=== PATIENT | female | born 1990 | race Caucasian/White ===

== ENCOUNTER 2021-09-03 13:52 | Emergency (ER) | payer OTHER ==
[~2021-09-03] VITALS: Ht 165.1 cm; Wt 49.9 kg
[2021-09-03 16:15] LABS: *BILIRUBIN,URIN NEGATIVE (NEGATIVE); *BLOOD, URINE NEGATIVE (NEGATIVE); *CLARITY,URINE CLEAR (CLEAR); *COLOR,URINE YELLOW (YELLOW); *KETONES,URINE NEGATIVE (NEGATIVE); *UROBILINOGEN,URINE 0.2 E.U./dl (NORMAL); LEUKOCYTE ESTERASE ,URINE NEGATIVE (NEGATIVE); NITRITE, URINE NEGATIVE (NEGATIVE); UGLUCOSE NEGATIVE (NEGATIVE)
[2021-09-03 16:16] LABS: HEMATOCRIT 38.3 % (31.2-41.9); MEAN CORPUSCULAR HEMOGLOBIN 31.9 uug (24.7-32.8); MEAN CORPUSCULAR VOLUME 93.9 fL (75.5-95.3); PLATELET COUNT (AUTO) 260 K/uL (179-408)
[2021-09-03 16:20] LABS: CARBON DIOXIDE 23 mmol/L (21-32); CHLORIDE 103 mmol/L (98-107); CREATININE 0.8 mg/dL (0.6-1.3); GLUCOSE 90 mg/dL (74-106); POTASSIUM 3.4 mmol/L (3.5-5.1); UREA NITROGEN, BLOOD 8 mg/dL (7-18)
[2021-09-03 16:26] LABS: ALANINE AMINOTRANSFERASE 32 U/L (14-59); ALKALINE PHOSPHATASE 89 U/L (50-136); ASPARTATE AMINOTRANSFERASE 21 U/L (15-37); BILIRUBIN,DIRECT < 0.1 mg/dL (0.0-0.2); BILIRUBIN,TOTAL 0.4 mg/dL (0.2-1.0); TOTAL PROTEIN, SERUM 7.7 g/dL (6.4-8.2)
[2021-09-03] MEDS ORDERED: DEXAMETHASONE SOD PHOSPHATE 4 MG INJ ONE (16:29)
[2021-09-03] MEDS ORDERED: ONDANSETRON 4 MG/2 ML VIAL ONE (16:30)
[2021-09-03] MEDS ORDERED: CEFTRIAXONE /D5W 50ML IVPB **ER PYXIS IV ONE (16:30)
[2021-09-03] MEDS ORDERED: KETOROLAC TROMETHAMINE 15 MG INJ ONE (16:30)
[2021-09-03] MEDS: DEXAMETHASONE SOD PHOSPHATE 4 MG INJ IV ONE (16:34)
[2021-09-03] MEDS: IV NORMAL SALINE 1000 ML BAG IV ONE (16:34)
[2021-09-03] MEDS: ONDANSETRON 4 MG/2 ML VIAL IV ONE (16:34)
[2021-09-03] MEDS: KETOROLAC TROMETHAMINE 15 MG INJ IVP ONE (16:35)
[2021-09-03] MEDS: CEFTRIAXONE 1 G in IV DEXTROSE 5% 50 ML IV ONE (16:35)
[2021-09-03] MEDS ORDERED: PRED50TA PO (17:03)
[2021-09-03] MEDS ORDERED: HYDR-3972 PO (17:03)
--- NOTE | 2021-09-03 17:14 | NUR ---
IV removed. Catheter intact and site benign. Pressure and 4x4 gauze applied to site. No bleeding noted.
--- NOTE | 2021-09-03 17:15 | NUR ---
Patient discharged to home in stable condition. Written and verbal after care instructions given. Patient verbalizes understanding of instructions. Stressed follow up or return to ER for worsening s/s.
[2021-09-03 17:17] VITALS: BP 124/78
== END 2021-09-03 17:17 | disposition home or self-care (01) ==
LOC: ER 13:52
DX: B34.9 Viral infection, unspecified (principal); R05.9 Cough, unspecified; Z20.822 Contact with and (suspected) exposure to COVID-19; F17.210 Nicotine dependence, cigarettes, uncomplicated; Z81.1 Family history of alcohol abuse and dependence; R00.0 Tachycardia, unspecified
CPT/HCPCS: 36415; 71045; 80048; 80076; 81003; 83605; 84145; 84484; 84702; 85025; 87040 ×2; 87086; 87400; 87426; 93005; 96365; 96375; 99285; J0696; J1100; J1885; J2405; 70030-TC; A4663; J7030; J7040

== ENCOUNTER 2022-02-06 19:19 | Emergency (ER) | payer OTHER ==
[~2022-02-06] VITALS: Ht 152.4 cm; Wt 52.2 kg
[~2022-02-06 19:19] MED LIST: HYDR-3972 PO; PRED50TA PO
--- NOTE | 2022-02-06 19:52 | NUR ---
Dr. Malone at bedside, MSE in progress.
[2022-02-06] MEDS ORDERED: CLINDAMYCIN HCL 150 MG CAPSULE ONE (20:13)
[2022-02-06] MEDS ORDERED: CLINDAMYCIN HCL 150 MG CAPSULE PO ONE (20:15)
[2022-02-06] MEDS ORDERED: CLIN300C12 PO ×2 (20:20→20:24)
[2022-02-06] MEDS ORDERED: HYDR-4209 PO (20:24)
[2022-02-06] MEDS ORDERED: HYDROCODONE/APAP 5-325MG TABLET ONE (20:28)
[2022-02-06] MEDS ORDERED: HYDROCODONE/APAP 5-325MG TABLET PO ONE (20:30)
--- NOTE | 2022-02-06 20:31 | NUR ---
Patient discharged to home in stable condition. Written and verbal after care instructions given. Patient verbalizes understanding of instructions. Stressed follow up or return to ER for worsening s/s. pt ambulated with steady gait. denies pain. no SOB. no chest pain. AOx4.
[2022-02-06 20:34] VITALS: BP 119/80
== END 2022-02-06 20:35 | disposition home or self-care (01) ==
LOC: ER 19:21
DX: K04.7 Periapical abscess without sinus (principal); R07.0 Pain in throat; Z88.0 Allergy status to penicillin
CPT/HCPCS: A4663

== ENCOUNTER 2023-01-01 20:01 | Emergency (ER) | payer OTHER ==
[~2023-01-01] VITALS: Ht 165.1 cm; Wt 49.9 kg
[~2023-01-01 20:01] MED LIST changes: +CLIN300C12 PO; +HYDR-4209 PO
[2023-01-01 20:08] VITALS: O2SAT 99
--- NOTE | 2023-01-01 20:15 | NUR ---
Dr. Salas at bedside. MSE in progress.
[2023-01-01] MEDS ORDERED: LIDOCAINE 2%-EPI 1:100,000 20 ML VIAL TP ONE (20:30)
[2023-01-01] MEDS ORDERED: LIDOCAINE 2%-EPI 1:100,000 20 ML VIAL ONE (20:31)
[2023-01-01] MEDS ORDERED: HYDR-3980 PO (20:58)
[2023-01-01] MEDS ORDERED: CEPH500C2 PO (20:58)
--- NOTE | 2023-01-01 21:25 | NUR ---
Patient a/o x 4. NAD noted. Ambulatory with a steady gait. All belongings with patient. Patient discharged to home in stable condition. Written and verbal after care instructions given. Patient verbalizes understanding of instructions. Stressed follow up or return to ER for worsening s/s.
== END 2023-01-01 21:26 | disposition home or self-care (01) ==
LOC: ER 20:03
DX: L02.411 Cutaneous abscess of right axilla (principal); F17.210 Nicotine dependence, cigarettes, uncomplicated; Z71.6 Tobacco abuse counseling; Z88.0 Allergy status to penicillin; Z79.2 Long term (current) use of antibiotics; Z79.899 Other long term (current) drug therapy
CPT/HCPCS: A4663

== ENCOUNTER 2023-09-08 19:43 | Emergency (ER) | payer OTHER ==
[~2023-09-08] VITALS: Ht 157.5 cm; Wt 52.2 kg
[~2023-09-08 19:43] MED LIST changes: +CEPH500C2 PO; +HYDR-3980 PO
[2023-09-08] MEDS ORDERED: ASPIRIN 81 MG TAB.CHEW PO ONE (20:15)
[2023-09-08] MEDS ORDERED: NITROGLYCERIN OINT 1 GM PACKET TP ONE ×2 (20:15→20:16)
[2023-09-08] MEDS ORDERED: ASPIRIN 81 MG TAB.CHEW ONE (20:16)
[2023-09-08] MEDS ORDERED: ACETAMINOPHEN ES 500 MG TABLET PO ONE (20:30)
[2023-09-08 20:43] LABS: CALCIUM 9.8 mg/dL (8.5-10.1); CARBON DIOXIDE 26 mmol/L (21-32); CHLORIDE 99 mmol/L (98-107); CREATININE 0.7 mg/dL (0.6-1.3); GLUCOSE 99 mg/dL (74-106); POTASSIUM 3.6 mmol/L (3.5-5.1); SODIUM SERUM 134 mmol/L (136-145); UREA NITROGEN, BLOOD 9 mg/dL (7-18)
[2023-09-08] MEDS ORDERED: GUAIFENESIN/CODEINE 5 ML LIQUID UDC PO ONE (20:45)
[2023-09-08] MEDS ORDERED: ONDANSETRON ODT 4 MG TAB.RAPDIS SL ONE (20:45)
[2023-09-08] MEDS ORDERED: HYDROCODONE/APAP 5-325MG TABLET PO ONE (20:45)
[2023-09-08] MEDS ORDERED: ONDANSETRON ODT 4 MG TAB.RAPDIS ONE (20:45)
[2023-09-08] MEDS ORDERED: GUAIFENESIN/CODEINE 5 ML LIQUID UDC ONE (20:45)
[2023-09-08] MEDS ORDERED: ACETAMINOPHEN ES 500 MG TABLET ONE (20:45)
[2023-09-08] MEDS ORDERED: predniSONE 50 MG TABLET ONE (20:45)
[2023-09-08] MEDS ORDERED: predniSONE 50 MG TABLET PO ONE (20:45)
[2023-09-08] MEDS ORDERED: HYDROCODONE/APAP 5-325MG TABLET ONE (20:46)
[2023-09-08 20:51] LABS: BASOPHILS # (AUTO) 0.1 K/UL (0.0-0.2); BASOPHILS % (AUTO) 0.4 % (0.0-2.0); EOSINOPHILS # (AUTO) 0.2 K/uL (0.0-0.7); HEMOGLOBIN 12.3 g/dL (10.9-14.3); LYMPHOCYTES # (AUTO) 1.2 K/uL (0.8-4.8); LYMPHOCYTES % (AUTO) 7.9 % (20.5-51.5); MEAN CORPUSCULAR HEMOGLOBIN 30.8 uug (24.7-32.8); MEAN CORPUSCULAR HGB CONC 33 g/dL (32.3-35.6); MEAN CORPUSCULAR VOLUME 92.2 fL (75.5-95.3); MONOCYTES # (AUTO) 1.5 K/uL (0.1-1.30); MONOCYTES % (AUTO) 9.7 % (0.0-11.0); NEUTROPHILS # (AUTO) 12.8 K/uL (1.8-8.9); PLATELET COUNT (AUTO) 308 K/uL (179-408); RED BLOOD CELL COUNT(AUTO) 4.01 MIL/uL (3.63-4.92); RED CELL DISTRIBUTION WIDTH 14.1 % (12.3-17.7); WHITE BLOOD COUNT (AUTO) 15.8 K/uL (3.8-11.8)
[2023-09-08 20:52] LABS: DIFFERENTIAL COMMENT 1
[2023-09-08 20:56] LABS: ALANINE AMINOTRANSFERASE 22 U/L (14-59); ALBUMIN 3.7 g/dL (3.4-5.0); ALKALINE PHOSPHATASE 88 U/L (50-136); ASPARTATE AMINOTRANSFERASE 15 U/L (15-37); BILIRUBIN,DIRECT 0.1 mg/dL (0.0-0.2); BILIRUBIN,TOTAL 0.3 mg/dL (0.2-1.0); NT-PRO BNP 38 pg/mL (0-125); TOTAL PROTEIN, SERUM 7.5 g/dL (6.4-8.2)
[2023-09-08] MEDS ORDERED: IV NORMAL SALINE 1000 ML BAG IV ONE ×2 (21:00→21:45)
[2023-09-08] MEDS ORDERED: AZITHROMYCIN 500MG/ D5W 250ML IVPB **ER PYXIS ONLY IV ONE (21:07)
[2023-09-08] MEDS ORDERED: AZITHROMYCIN IV 500 MG in IV DEXTROSE 5% 250 ML IV ONE (21:15)
[2023-09-08 21:41] LABS: *URINE HCG, QUAL NEGATIVE (NEGATIVE)
[2023-09-08 21:52] LABS: *AMPHETAMINE, URINE NEGATIVE (NEGATIVE); *BARBITURATE, URINE NEGATIVE (NEGATIVE); *BENZODIAZEPINE, URINE NEGATIVE (NEGATIVE); *CANNABINOID, URINE NEGATIVE (NEGATIVE); *COCCAINE, URINE POSITIVE (NEGATIVE); *OPIATE, URINE POSITIVE (NEGATIVE); *PHENCYCLIDINE SCREEN,URINE NEGATIVE (NEGATIVE)
[2023-09-08 21:53] LABS: FENTANYL, URINE POSITIVE (NEGATIVE)
[2023-09-08] MEDS ORDERED: AZIT250T13 PO (22:09)
[2023-09-08] MEDS ORDERED: GUAI-671 PO (22:09)
[2023-09-08] MEDS ORDERED: NALO4SPR NS (22:09)
[2023-09-08 22:30] VITALS: BP 108/46; O2SAT 94
== END 2023-09-08 22:30 | disposition home or self-care (01) ==
LOC: ER 19:44
DX: J40 Bronchitis, not specified as acute or chronic (principal); R07.89 Other chest pain; R06.00 Dyspnea, unspecified; F14.10 Cocaine abuse, uncomplicated; F19.90 Other psychoactive substance use, unspecified, uncomplicated; F17.210 Nicotine dependence, cigarettes, uncomplicated; Z71.6 Tobacco abuse counseling; Z88.0 Allergy status to penicillin; Z79.2 Long term (current) use of antibiotics; Z79.899 Other long term (current) drug therapy; Z20.822 Contact with and (suspected) exposure to COVID-19
CPT/HCPCS: 36415; 71045; 84484; 84703; 85025; 93005; A4606; A4663; A9150; J0456; J7040; J7512; Q0162